=== PATIENT | male | born 1985 | race Caucasian/White ===

== ENCOUNTER 2018-01-19 08:33 | Inpatient (IN) ==
[2018-01-19] MEDS ORDERED: Sod Chloride 0.9% Inj 1,000 ML IV.SIG ONE (09:29)
[2018-01-19] MEDS ORDERED: Morphine Inj 4 MG/ML Vial IV.PUSH ONE ×3 (09:29→11:18)
[2018-01-19] MEDS ORDERED: Ketorolac Inj 30 MG/ML (IVP) Vial IV.PUSH ONE (09:29)
--- NOTE | 2018-01-19 09:31 | ED ---
HPI General Chief Complaint: Urogenital-Male Stated Complaint: possible kidney stone complaint Time Seen by Provider: 01/19/18 09:28 Source: patient and family Mode of arrival: ambulatory Limitations: no limitations History of Present Illness HPI narrative: Patient had acute onset of left flank pain since 7 AM nonradiating. Patient has a previous history of left ureteral reconstruction when he was 7 or 8 years old, and then in his 20s he developed left-sided kidney stone with hydronephrosis which ended up requiring lithotripsy and stent and essentially some sort of open kidney surgery according to patient. According to patient he developed hives to sulfa, but the Toradol he only developed nausea and vomiting , patient was advised that Toradol was not a allergy but adverse effect and that he will be provided with antiemetics any time that he is given that medication. Except for the above surgery no other surgical history Patient denies any other past medical history MD complaint: Reports flank pain Onset (ago): hour(s) (2.5) Pain Consistency: constant Location: Reports L flank Severity: severe Severity scale (1-10): 8 Quality: Reports sharp Radiation: Reports none Migration to: Reports no migration Exacerbating factors: nothing Associated symptoms: Reports denies other symptoms Related Data Home Medications Medication Instructions Recorded Confirmed No Known Home Medications 01/19/18 01/19/18 Allergies Allergy/AdvReac Type Severity Reaction Status Date / Time ketorolac Allergy Severe Nausea/Vomi Verified 01/19/18 09:23 ting Sulfa (Sulfonamide Allergy Severe hives Verified 01/19/18 09:23 Antibiotics) Review of Systems ROS: all other systems reviewed are negative [facility] Medical History Medical History Kidney stones (Acute) Surgical History Surgical History H/O lithotripsy (Acute) Family History Family History Other No pertinent family history Social History Social History Substance History: No History of Abuse Second Hand Smoke Exposure: No Smoking Status: Current every day smoker Tobacco Type: Cigarettes How Often Do You Have a Drink Containing Alcohol: 2 to 4 times a month Recent Travel in [facility] within the Last 8 Weeks: No Recent Out of Country Travel within the Last 8 Weeks: No Immunization History Tetanus Immunization: Unsure Exam Narrative Exam Narrative: GENERAL: young male in moderate Apparent distress due to pain. SKIN: Warm and dry. HEAD: Atraumatic. Normocephalic. EYES: Pupils equal and round. No scleral icterus. No injection or drainage. ENT: No nasal bleeding or discharge. Mucous membranes pink and moist. NECK: Trachea midline. No JVD. CARDIOVASCULAR: Regular rate and rhythm. no rubs or gallops RESPIRATORY: No accessory muscle use. Clear to auscultation. Breath sounds equal bilaterally. GASTROINTESTINAL: Abdomen soft, non-tender, nondistended. No rebound or guarding MUSCULOSKELETAL: Extremities without clubbing, cyanosis, or edema. No obvious deformities. No CVA tenderness NEUROLOGICAL: Awake and alert. No obvious cranial nerve deficits. Motor grossly within normal limits. Five out of 5 muscle strength in the arms and legs. Normal speech. PSYCHIATRIC: Appropriate mood and affect; insight and judgment normal. Course Initial Documented Vital Signs Temperature 97.6 F 01/19/18 08:35 Pulse Rate 78 01/19/18 08:35 Respiratory Rate 24 01/19/18 08:35 Blood Pressure 130/77 01/19/18 08:35 Pulse Oximetry 100 01/19/18 08:35 Last Documented Vital Signs Temperature 97.6 F 01/19/18 08:35 Pulse Rate 65 01/19/18 10:15 Respiratory Rate 16 01/19/18 11:00 Blood Pressure 137/76 01/19/18 10:15 Pulse Oximetry 100 01/19/18 10:15 Medical Decision Making [facility] Narrative Medical decision making narrative: Reactive leukocytosis 14,000 WBC, no evidence of any left shift, no anemia normal platelet count Urinalysis currently pending Electrodes are within normal limits, normal kidney liver function Elevated lipase [address] abdomen and pelvis read by radiologist as area of stenosis on left showing severe hydronephrosis no evidence of any renal stones. Case discussed fully with Dr. Durham from hospitalist group for admission Case was also fully discussed with the urologist Dr. Rush who will come and see the patient and evaluate for further recommendations Medical Screen Exam Complete: Yes Emergency Medical Condition: Yes Medical Records Medical records reviewed: Yes I reviewed the patient's medical records. Lab Data Result diagrams: 01/19/18 09:38 01/19/18 09:38 Lab Results 01/19/18 01/19/18 Range/Units 09:38 09:38 WBC 13.6 H (4.0-11.0) th/mm3 RBC 5.09 (4.50-5.90) mil/mm3 Hgb 15.6 (13.0-17.0) gm/dL Hct 46.0 (39.0-51.0) % MCV 90.3 (80.0-100.0) fL MCH 30.6 (27.0-34.0) pg MCHC 33.9 (32.0-36.0) % RDW 13.7 (11.6-17.2) % Plt Count 193 (150-450) th/mm3 MPV 9.2 (7.0-11.0) fL Neut % (Auto) 68.0 (16.0-70.0) % Lymph % (Auto) 20.5 (9.0-44.0) % [place] % (Auto) 8.6 H (0.0-8.0) % Eos % (Auto) 2.2 (0.0-4.0) % Baso % (Auto) 0.7 (0.0-2.0) % Neut # (Auto) 9.2 H (1.8-7.7) th/mm3 Lymph # (Auto) 2.8 (1.0-4.8) th/mm3 [place] # (Auto) 1.2 H (0.0-0.9) th/mm3 Eos # (Auto) 0.3 (0.0-0.4) th/mm3 Baso # (Auto) 0.1 (0.0-0.2) th/mm3 WBC Differential . Differential Comment Auto diff final Sodium 139 (136-145) meq/L Potassium 4.2 (3.5-5.1) meq/L Chloride 105 (98-107) meq/L Carbon Dioxide 25.6 (21.0-32.0) meq/L Anion Gap 8 (5-15) meq/L BUN 23 H (7-18) mg/dL Creatinine 1.15 (0.60-1.30) mg/dL Estimated GFR 73 L (>89) mL/min Random Glucose 95 (74-106) mg/dL Calcium 8.8 (8.5-10.1) mg/dL Total Bilirubin 1.0 (0.2-1.0) mg/dL AST 22 (15-37) U/L ALT 35 (12-78) U/L Alkaline Phosphatase 61 (45-117) U/L Total Protein 7.6 (6.4-8.2) g/dL Albumin 3.9 (3.4-5.0) g/dL Lipase 894 H (73-393) U/L Imaging Data Radiologist's impression: Abdomen/Pelvis CT 01/19/18 09:29 CONCLUSION: 1. There is abnormal dilation of the left renal collecting system to the level of the pelvic inlet without visible obstructing stone. Findings are concerning for an area of stenosis from prior ureteral surgery with resulting severe hydronephrosis. Urologic consultation is recommended. 2. No evidence of renal stones. Discharge Plan Discharge Disposition Patient Disposition: 30 Still Patient Discharge Condition Condition: Stable Discharge Details Diagnosis: Hydronephrosis, Pancreatitis Physicians Team ED Provider: Fredis Babcock Primary Care Provider: Primary Care Swapna Underwood Attending Provider: Marta Pablo Other Providers: Aleksander Rush Status ED Status: Admitted Observation Patient
[2018-01-19 09:57] LABS: Baso # (Auto) 0.1 th/mm3 (0.0-0.2); Baso % (Auto) 0.7 % (0.0-2.0); Eos # (Auto) 0.3 th/mm3 (0.0-0.4); Eos % (Auto) 2.2 % (0.0-4.0); Hemoglobin 15.6 gm/dL (13.0-17.0); Lymph # (Auto) 2.8 th/mm3 (1.0-4.8); Lymph % (Auto) 20.5 % (9.0-44.0); Mean Corpuscular HGB Conc 33.9 % (32.0-36.0); Mean Corpuscular Hemoglobin 30.6 pg (27.0-34.0); Mean Corpuscular Volume 90.3 fL (80.0-100.0); Mean Platelet Volume 9.2 fL (7.0-11.0); Mono # (Auto) 1.2 th/mm3 (0.0-0.9); Mono % (Auto) 8.6 % (0.0-8.0); Neut # (Auto) 9.2 th/mm3 (1.8-7.7); Platelet Count 193 th/mm3 (150-450); Red Blood Count 5.09 mil/mm3 (4.50-5.90); Red Cell Distribution Width 13.7 % (11.6-17.2); White Blood Count 13.6 th/mm3 (4.0-11.0)
[2018-01-19 10:12] LABS: Albumin 3.9 g/dL (3.4-5.0); Anion Gap 8 meq/L (5-15); Aspartate Aminotransferase 22 U/L (15-37); Blood Urea Nitrogen 23 mg/dL (7-18); Calcium 8.8 mg/dL (8.5-10.1); Carbon Dioxide 25.6 meq/L (21.0-32.0); Chloride 105 meq/L (98-107); Glomerular Filtration Rate 73 mL/min (>89); Glucose,Random 95 mg/dL (74-106); Lipase 894 U/L (73-393); Potassium 4.2 meq/L (3.5-5.1); Sodium 139 meq/L (136-145)
[2018-01-19 10:13] LABS: Alanine Aminotransferase 35 U/L (12-78)
[2018-01-19 10:16] LABS: Alkaline Phosphatase 61 U/L (45-117); Total Protein 7.6 g/dL (6.4-8.2)
--- NOTE | 2018-01-19 10:38 | CT ---
EXAM DATE: 01/19/2018 10:26 AM EST AGE/SEX: 32 years / Male INDICATIONS: Left flank pain CLINICAL DATA: This is the patient's initial encounter. Patient reports that signs and symptoms have been present for 1 day and indicates a pain score of 10/10. MEDICAL/SURGICAL HISTORY: Renal calculi. . Left ureteral surgery RADIATION DOSE: 14.66 CTDI (mGy) [place] [facility] [place] 03/29/2010. . TECHNIQUE: Multiple contiguous axial images were obtained through the abdomen. Images were obtained using multiple row detector helical technique. Using automated exposure control and adjustment of the mA and/or kV according to patient size, radiation dose was kept as low as reasonably achievable to o btain optimal diagnostic quality images. DICOM format image data is available electronically for rev iew and comparison. FINDINGS: Lower Lungs: The visualized lower lungs are clear. Liver: The liver has a homogeneous density without space-occupying lesion. There is no dilation of th e biliary tree. Spleen: Homogeneous density without enlargement. Pancreas: Unremarkable without mass or calcification. Kidneys: There is a stable appearance of severe left-sided hydronephrosis and abnormal dilation of t he proximal one third of the left ureter with rapid transition to a small caliber of the left ureter at the level of the pelvic inlet. No obstructing stone is visualized. The right kidney is normal in m orphology without evidence of stone, mass or abnormal dilation of the collecting system. Adrenal Glands: Unremarkable. Aorta: The aorta and proximal iliac vessels are grossly unremarkable without aneurysmal dilation. Bowel/Mesentery: The bowel loops are grossly unremarkable. The cecum and sigmoid colon have a normal configuration. Abdominal Wall: Intact. Retroperitoneum: No evidence of adenopathy in the retrocrural, para-aortic, or deep pelvic regions. Bladder: Contours are smooth. Reproductive Organs: No abnormal masses or calcifications seen. Inguinal: The inguinal region is unremarkable without evidence of adenopathy. Bony Structures: Unremarkable. CONCLUSION: 1. There is abnormal dilation of the left renal collecting system to the level of the pelvic inlet w ithout visible obstructing stone. Findings are concerning for an area of stenosis from prior ureteral surgery with resulting severe hydronephrosis. Urologic consultation is recommended. 2. No evidence of renal stones. Electronically signed by: Gale Ramirez MD 01/19/2018 10:36 AM EST
[2018-01-19] MEDS ORDERED: HYDROmorphone PF Inj 0.5 MG/0.5 ML Syringe IV.PUSH PRN (11:40)
--- NOTE | 2018-01-19 11:49 | P.HPIM ---
History of Present Illness Primary Care Physician: No Primary Care Physician Chief Complaint: left flank pain History of Present Illness: patient is a 32 y/o male with history of kidney stone- s/p left kidney surgery/ laser stone fragmentation/ left ureteral stent placement years ago, presented to ER with left flank pain.he says that the pain started this morning. pain was sharp and severe. pain had some radiation to the left upper abdomen. it was not associated with nausea, vomiting. he denies fever, gross hematuria or dysuria. pain subsided slightly with the morphine that he received earlier. Review of Systems All other systems reviewed negative except as stated in HPI PMFSH - History History Provided By: Patient - Medical History Medical History: Medical History (Last Reviewed 01/19/18 @ 11:45 by Marta Pablo MD) Kidney stones - Surgical History Surgical History: Surgical History (Last Reviewed 01/19/18 @ 11:45 by Marta Pablo MD) H/O lithotripsy - Family History Family History: Family History (Last Updated 01/19/18 @ 11:46 by Marta Pablo MD) Other No pertinent family history - Tobacco History Second Hand Smoke Exposure: No Tobacco Use In Past 30 Days: No Smoking Status: Current every day smoker Tobacco Type: Cigarettes - Alcohol History How Often Do You Have a Drink Containing Alcohol: 2 to 4 times a month - Substance Use History Substance History: No History of Abuse - Travel History Recent Travel in the [place] Within the Last 8 Weeks: No Recent Travel Out of the Country Within the Last 8 Weeks: No - Immunization History Tetanus Immunization: Unsure Medications and Allergies Active Medications: Active Medications Hydromorphone HCl (Dilaudid Pf Inj) 1 mg IV.PUSH Q4H PRN PRN Reason: pain Sodium Chloride (Ns Inj) 1,000 mls @ 100 mls/hr IV.CONT .Q10H СВЕТЛАНА Ondansetron HCl (Zofran Inj) 4 mg IV.PUSH Q8H PRN PRN Reason: nausea Sodium Chloride (Ns Flush) 2 ml IV.FLUSH PRN PRN PRN Reason: FLUSH AFTER USING IV ACCESS Allergies Allergy/AdvReac Type Severity Reaction Status Date / Time ketorolac Allergy Severe Nausea/Vomi Verified 01/19/18 09:23 ting Sulfa (Sulfonamide Allergy Severe hives Verified 01/19/18 09:23 Antibiotics) Home Medications Medication Instructions Recorded Confirmed Type No Known Home Medications 01/19/18 01/19/18 History Exam Vital signs: Vital Signs 01/19/18 08:35 01/19/18 10:00 01/19/18 10:15 Temperature 97.6 F Pulse Rate 78 65 Respiratory Rate 24 16 22 Blood Pressure 130/77 137/76 Pulse Oximetry 100 100 01/19/18 10:29 01/19/18 11:00 Temperature Pulse Rate Respiratory Rate 20 16 Blood Pressure Pulse Oximetry Intake & Output 01/18/18 01/19/18 01/19/18 18:59 06:59 18:59 Intake Total 650 / 650 Balance 650 / 650 Weight 92.986 kg Intake: IV 650 / 650 NS Inj 1,000 ML @ Wide Open IV. 650 / 650 SIG BOLUS ONE Rx#:[id number] - Constitutional no acute distress (but very uncomfortable with the pain.) - Routine HEENT Exam Eye: Present: PERRL - Routine Neck Exam Present: supple - Routine Respiratory Exam Present: CTA bilaterally - Routine Cardiovascular Exam Present: RRR - Routine Abdominal Exam Present: soft - Routine Extremities Exam Comments: no pedal edema. - Routine Neurological Exam Present: alert, oriented X3 Results - Labs CBC & Chem 7: 01/19/18 09:38 01/19/18 09:38 Labs: Short CBC 01/19/18 Range/Units 09:38 WBC 13.6 H (4.0-11.0) th/mm3 Hgb 15.6 (13.0-17.0) gm/dL Hct 46.0 (39.0-51.0) % Plt Count 193 (150-450) th/mm3 [facility] 01/19/18 09:38 Sodium 139 Potassium 4.2 Chloride 105 Carbon Dioxide 25.6 BUN 23 H Creatinine 1.15 Calcium 8.8 Liver Function 01/19/18 Range/Units 09:38 Total Bilirubin 1.0 (0.2-1.0) mg/dL AST 22 (15-37) U/L ALT 35 (12-78) U/L Alkaline Phosphatase 61 (45-117) U/L Albumin 3.9 (3.4-5.0) g/dL - Imaging Impressions Abdomen/Pelvis CT 01/19/18 09:29 CONCLUSION: 1. There is abnormal dilation of the left renal collecting system to the level of the pelvic inlet without visible obstructing stone. Findings are concerning for an area of stenosis from prior ureteral surgery with resulting severe hydronephrosis. Urologic consultation is recommended. 2. No evidence of renal stones. Caprini VTE Risk Assessment Caprini VTE Risk Assessment: No/Low Risk (score <= 1) Caprini Risk Assessment Model: Point Value = 1 Point Value = 2 Point Value = 3 Point Value = 5 Age 41-60 Minor surgery BMI > 25 kg/m2 Swollen legs Varicose veins or History of unexplained or recurrent spontaneous Oral contraceptives or hormone replacement Sepsis (< 1 month) Serious lung disease, including pneumonia (< 1 month) Abnormal pulmonary function Acute myocardial infarction Congestive heart failure (< 1 month) History of inflammatory bowel disease Medical patient at bed rest Age 61-74 Arthroscopic surgery Major open surgery (> 45 min) Laparoscopic surgery (> 45 min) Malignancy Confined to bed (> 72 hours) Immobilizing plaster cast Central venous access Age >= 75 History of VTE Family history of VTE Factor V Leiden Prothrombin [id number] Lupus anticoagulant Anticardiolipin antibodies Elevated serum homocysteine Heparin-induced thrombocytopenia Other congenital or acquired thrombophilia Stroke (< 1 month) Elective arthroplasty Hip, pelvis, or leg fracture Acute spinal cord injury (< 1 month) Prophylaxis Regimen: Total Risk Factor Score Risk Level Prophylaxis Regimen 0-1 Low Early ambulation 2 Moderate Order ONE of the following: *Sequential Compression Device (SCD) *Heparin 5000 units SQ BID 3-4 Higher Order ONE of the following medications: *Heparin 5000 units SQ TID *Enoxaparin/Lovenox 40 mg SQ daily (WT < 150 kg, CrCl > 30 mL/min) *Enoxaparin/Lovenox 30 mg SQ daily (WT < 150 kg, CrCl > 10-29 mL/min) *Enoxaparin/Lovenox 30 mg SQ BID (WT < 150 kg, CrCl > 30 mL/min) AND/OR *Sequential Compression Device (SCD) 5 or more Highest Order ONE of the following medications: *Heparin 5000 units SQ TID (Preferred with Epidurals) *Enoxaparin/Lovenox 40 mg SQ daily (WT < 150 kg, CrCl > 30 mL/min) *Enoxaparin/Lovenox 30 mg SQ daily (WT < 150 kg, CrCl > 10-29 mL/min) *Enoxaparin/Lovenox 30 mg SQ BID (WT < 150 kg, CrCl > 30 mL/min) AND *Sequential Compression Device (SCD) Assessment and Plan - Plan A/P - severe left-sided hydronephrosis but with no evidence of stone on CT keep NPO for now- consult Urology- will continue with supportive care with IV fluid, pain control and antiemetics as needed- UA pending. -elevated lipase- with no evidence of pancreatitis on CT continue supportive care and repeat the lipase level tomorrow. -leukocytosis- likely reactive UA pending- monitor temps and repeat CBC in am. Discussed Condition With: ER physician and the patient. Discharge Planning: home when medically stable - pending urology w/u.
[2018-01-19] MEDS: Sod Chloride 0.9% Inj 1,000 ML IV.CONT SCH (12:02)
[2018-01-19 13:17] LABS: Bilirubin,Urine Negative (Negative); Clarity,Urine Clear (Clear); Color,Urine Yellow (Yellw/Straw); Glucose,Urine (UA) Negative (Negative); Leukocyte Esterase,Urine Negative (Negative); Mucus,Urine Few /lpf (Occasional); Nitrite,Urine Negative (Negative); Specific Gravity,Urine 1.015 (1.002-1.035)
--- NOTE | 2018-01-19 15:02 | P.CONURO ---
History of Present Illness Service: urology Consult date: 01/19/18 Reason for Consult: Left hydronephrosis Primary Care Provider: No Primary Care Physician Chief Complaint: left flank pain History of Present Illness: 32yo male with urological history of left ureteral surgery as a child as well as nephrolithiasis history now seen on consultation for left flank pain. Patient reports he experienced severe left flank pain last night, 10/, located in left flank. Reports this was similar to the pain he previously experienced with kidney stone. This was in his 20s and treated with ESWL. His left ureteral surgery was as a child and sounds like a UPJ obstruction repair. No fevers, no N/V. Review of Systems All other systems reviewed negative except as stated in HPI PMFSH - History History Provided By: Patient - Medical History Medical History: Medical History (Last Reviewed 01/19/18 @ 11:45 by Marta Pablo MD) Kidney stones - Surgical History Surgical History: Surgical History (Last Reviewed 01/19/18 @ 11:45 by Marta Pablo MD) H/O lithotripsy - Family History Family History: Family History (Last Updated 01/19/18 @ 11:46 by Marta Pablo MD) Other No pertinent family history - Tobacco History Second Hand Smoke Exposure: No Tobacco Use In Past 30 Days: No Smoking Status: Current every day smoker Tobacco Type: Cigarettes - Alcohol History How Often Do You Have a Drink Containing Alcohol: 2 to 4 times a month - Substance Use History Substance History: No History of Abuse - Substance Use Type Marijuana Status: Active Route Used: Inhalation Frequency: 4-5 times weekly Reason for Use: Sleep - Travel History Recent Travel in the [place] Within the Last 8 Weeks: No Recent Travel Out of the Country Within the Last 8 Weeks: No - Immunization History Tetanus Immunization: Unsure Medications and Allergies Active Medications: Active Medications Hydromorphone HCl (Dilaudid Pf Inj) 1 mg IV.PUSH Q4H PRN PRN Reason: pain 1-10 Last Admin: 01/19/18 12:34 Dose: 1 mg Sodium Chloride (Ns Inj) 1,000 mls @ 100 mls/hr IV.CONT .Q10H СВЕТЛАНА Last Admin: 01/19/18 12:02 Dose: 100 mls/hr Ondansetron HCl (Zofran Inj) 4 mg IV.PUSH Q8H PRN PRN Reason: nausea Sodium Chloride (Ns Flush) 2 ml IV.FLUSH PRN PRN PRN Reason: FLUSH AFTER USING IV ACCESS Last Admin: 01/19/18 12:35 Dose: 2 ml Allergies Allergy/AdvReac Type Severity Reaction Status Date / Time ketorolac Allergy Severe Nausea/Vomi Verified 01/19/18 09:23 ting Sulfa (Sulfonamide Allergy Severe hives Verified 01/19/18 09:23 Antibiotics) Home Medications Medication Instructions Recorded Confirmed Type No Known Home Medications 01/19/18 01/19/18 History Physical Exam Vital Signs - 24 hr 01/19/18 08:35 01/19/18 10:00 01/19/18 10:15 Temperature 97.6 F Pulse Rate 78 65 Respiratory Rate 24 16 22 Blood Pressure 130/77 137/76 Pulse Oximetry 100 100 01/19/18 10:29 01/19/18 11:00 01/19/18 13:34 Temperature Pulse Rate Respiratory Rate 20 16 16 Blood Pressure Pulse Oximetry 01/19/18 14:36 Temperature Pulse Rate 75 Respiratory Rate 16 Blood Pressure 124/77 Pulse Oximetry 98 Physical Exam: GENERAL: This is a well-nourished, well-developed patient, in no apparent distress. SKIN: No rashes, ecchymoses or lesions. Cool and dry. HEAD: Atraumatic. Normocephalic. EYES: Extraocular motions intact. No scleral icterus. No injection or drainage. ENT: Nose without bleeding, purulent drainage NECK: Trachea midline. No JVD or lymphadenopathy. . CARDIOVASCULAR: Normal pulse RESPIRATORY: nonlabored GASTROINTESTINAL: Abdomen soft, non-tender, nondistended. Left flank scar noted MUSCULOSKELETAL: Extremities without clubbing, cyanosis, or edema. NEUROLOGICAL: Awake and alert. Motor and sensory grossly within normal limits. Normal speech. Lab results reviewed: Yes Laboratory Results - last 24 hr 01/19/18 01/19/18 01/19/18 09:38 09:38 11:50 WBC 13.6 H RBC 5.09 Hgb 15.6 Hct 46.0 MCV 90.3 MCH 30.6 MCHC 33.9 RDW 13.7 Plt Count 193 MPV 9.2 Neut % (Auto) 68.0 Lymph % (Auto) 20.5 [place] % (Auto) 8.6 H Eos % (Auto) 2.2 Baso % (Auto) 0.7 Neut # (Auto) 9.2 H Lymph # (Auto) 2.8 [place] # (Auto) 1.2 H Eos # (Auto) 0.3 Baso # (Auto) 0.1 WBC Differential . Differential Comment Auto diff final Sodium 139 Potassium 4.2 Chloride 105 Carbon Dioxide 25.6 Anion Gap 8 BUN 23 H Creatinine 1.15 Estimated GFR 73 L Random Glucose 95 Calcium 8.8 Total Bilirubin 1.0 AST 22 ALT 35 Alkaline Phosphatase 61 Total Protein 7.6 Albumin 3.9 Lipase 894 H Urine Color Yellow Urine Clarity Clear Urine pH 7.0 Ur Specific [place] 1.015 Urine Protein Negative Urine Glucose (UA) Negative Urine Ketones Negative Urine Occult Blood Negative Urine Nitrate Negative Urine Bilirubin Negative Urine Urobilinogen Less than 2 Ur Leukocyte Esterase Negative Urine RBC 1 Urine WBC 2 Urine Mucus Few H Micro UA Comment Culture not ind Ur Microscopic Review Not Reportable Urine Culture Comments Culture not ind Result Diagrams: 01/19/18 09:38 01/19/18 09:38 Personally reviewed images: Yes Imaging: ITS Impressions Abdomen/Pelvis CT 01/19/18 09:29 CONCLUSION: 1. There is abnormal dilation of the left renal collecting system to the level of the pelvic inlet without visible obstructing stone. Findings are concerning for an area of stenosis from prior ureteral surgery with resulting severe hydronephrosis. Urologic consultation is recommended. 2. No evidence of renal stones. Assessment and Plan - Assessment (1) Hydronephrosis Code(s): N13.30 - Unspecified hydronephrosis Status: Acute - Plan -Patient with pain however no obvious obstruction -Will obtain lasix renal scan to evaluate possible obstruction -Will follow
[2018-01-19] MEDS: HYDROmorphone PF Inj 1 MG/ML Ampul IV.PUSH PRN ×2 (16:15→20:02)
[2018-01-19] MEDS: Ketorolac Inj 30 MG/ML (IVP) Vial IV.PUSH PRN (19:47)
[2018-01-20] MEDS: HYDROmorphone PF Inj 1 MG/ML Ampul IV.PUSH PRN ×5 (00:03→21:26)
[2018-01-20] MEDS: Sod Chloride 0.9% Inj 1,000 ML IV.CONT SCH ×3 (00:05→10:16)
[2018-01-20] MEDS: Ketorolac Inj 30 MG/ML (IVP) Vial IV.PUSH PRN (02:16)
--- NOTE | 2018-01-20 06:11 | P.PN ---
Subjective Interval history: f/u hydronephrosis. Complaining of left flank pain and heartburn. Denies epigastric discomfort. Asking for food Physical Exam Vital signs: Vital Signs 01/19/18 08:35 01/19/18 10:00 01/19/18 10:15 Temperature 97.6 F Pulse Rate 78 65 Respiratory Rate 24 16 22 Blood Pressure 130/77 137/76 Pulse Oximetry 100 100 01/19/18 10:29 01/19/18 11:00 01/19/18 13:34 Temperature Pulse Rate Respiratory Rate 20 16 16 Blood Pressure Pulse Oximetry 01/19/18 14:36 01/19/18 16:00 01/19/18 20:00 Temperature 98.6 F 98.1 F Pulse Rate 75 56 L 62 Respiratory Rate 16 16 17 Blood Pressure 124/77 117/65 119/74 Pulse Oximetry 98 95 95 01/19/18 21:42 01/20/18 00:00 01/20/18 02:39 Temperature Pulse Rate 68 Respiratory Rate 18 18 18 Blood Pressure 120/67 Pulse Oximetry 99 01/20/18 03:53 Temperature 98.2 F Pulse Rate 50 L Respiratory Rate 18 Blood Pressure 115/60 Pulse Oximetry 95 Intake & Output 01/19/18 01/19/18 01/20/18 06:59 18:59 06:59 Intake Total 1300 / 1300 1000 / 1000 Output Total 650 / 650 300 / 300 Balance 650 / 650 700 / 700 Weight 95 kg Intake: IV 1300 / 1300 1000 / 1000 NS Inj 1,000 ML @ 100 mls/hr IV 1000 / 1000 .CONT .Q10H [facility] Rx#:[id number] NS Inj 1,000 ML @ Wide Open IV. 650 / 650 SIG BOLUS ONE Rx#:[id number] Output: Urine 650 / 650 300 / 300 Other: # Voids 1 Date of Last Bowel Movement 01/19/18 Weight On Admission 95 kg Narrative: GENERAL: Well-developed and well-nourished SKIN: Warm and dry. CARDIOVASCULAR: Regular rate and rhythm. RESPIRATORY: No accessory muscle use. Clear to auscultation. Breath sounds equal bilaterally. GASTROINTESTINAL: Abdomen soft, non-tender, nondistended. Left CVA tenderness MUSCULOSKELETAL: Extremities without clubbing, cyanosis, or edema. No obvious deformities. NEUROLOGICAL: Awake and alert. No obvious cranial nerve deficits. Motor grossly within normal limits. Five out of 5 muscle strength in the arms and legs. Normal speech. PSYCHIATRIC: Appropriate mood and affect; insight and judgment normal. Results - Labs CBC & Chem 7: 01/20/18 07:20 01/20/18 07:20 Laboratory Results - last 24 hr 01/19/18 01/19/18 01/19/18 09:38 09:38 11:50 WBC 13.6 H RBC 5.09 Hgb 15.6 Hct 46.0 MCV 90.3 MCH 30.6 MCHC 33.9 RDW 13.7 Plt Count 193 MPV 9.2 Neut % (Auto) 68.0 Lymph % (Auto) 20.5 [place] % (Auto) 8.6 H Eos % (Auto) 2.2 Baso % (Auto) 0.7 Neut # (Auto) 9.2 H Lymph # (Auto) 2.8 [place] # (Auto) 1.2 H Eos # (Auto) 0.3 Baso # (Auto) 0.1 WBC Differential . Differential Comment Auto diff final Sodium 139 Potassium 4.2 Chloride 105 Carbon Dioxide 25.6 Anion Gap 8 BUN 23 H Creatinine 1.15 Estimated GFR 73 L Random Glucose 95 Calcium 8.8 Total Bilirubin 1.0 AST 22 ALT 35 Alkaline Phosphatase 61 Total Protein 7.6 Albumin 3.9 Lipase 894 H Urine Color Yellow Urine Clarity Clear Urine pH 7.0 Ur Specific [place] 1.015 Urine Protein Negative Urine Glucose (UA) Negative Urine Ketones Negative Urine Occult Blood Negative Urine Nitrate Negative Urine Bilirubin Negative Urine Urobilinogen Less than 2 Ur Leukocyte Esterase Negative Urine RBC 1 Urine WBC 2 Urine Mucus Few H Micro UA Comment Culture not ind Ur Microscopic Review Not Reportable Urine Culture Comments Culture not ind - Imaging Impressions Abdomen/Pelvis CT 01/19/18 09:29 CONCLUSION: 1. There is abnormal dilation of the left renal collecting system to the level of the pelvic inlet without visible obstructing stone. Findings are concerning for an area of stenosis from prior ureteral surgery with resulting severe hydronephrosis. Urologic consultation is recommended. 2. No evidence of renal stones. Assessment and Plan - Plan Severe left-sided hydronephrosis but with no evidence of stone on CT -will continue with supportive care with IV fluid, pain control and antiemetics as needed- UA unremarkable. Lasix renal scan per Elevated lipase- with no evidence of pancreatitis on CT continue supportive care and repeat lipase within normal limits Leukocytosis- likely reactive. Resolved DVT prophylaxis, pt ambulatory
[2018-01-20 08:31] LABS: Baso # (Auto) 0.1 th/mm3 (0.0-0.2); Baso % (Auto) 0.7 % (0.0-2.0); Eos # (Auto) 0.3 th/mm3 (0.0-0.4); Eos % (Auto) 3.1 % (0.0-4.0); Hemoglobin 15.2 gm/dL (13.0-17.0); Lymph # (Auto) 2.2 th/mm3 (1.0-4.8); Lymph % (Auto) 26.1 % (9.0-44.0); Mean Corpuscular HGB Conc 33.7 % (32.0-36.0); Mean Corpuscular Hemoglobin 30.3 pg (27.0-34.0); Mean Corpuscular Volume 90.1 fL (80.0-100.0); Mean Platelet Volume 9.6 fL (7.0-11.0); Mono # (Auto) 0.8 th/mm3 (0.0-0.9); Mono % (Auto) 9.6 % (0.0-8.0); Neut # (Auto) 5.1 th/mm3 (1.8-7.7); Neut % (Auto) 60.5 % (16.0-70.0); Platelet Count 173 th/mm3 (150-450); Red Cell Distribution Width 13.4 % (11.6-17.2); White Blood Count 8.4 th/mm3 (4.0-11.0)
[2018-01-20 08:58] LABS: Anion Gap 7 meq/L (5-15); Blood Urea Nitrogen 15 mg/dL (7-18); Calcium 8.4 mg/dL (8.5-10.1); Carbon Dioxide 26.8 meq/L (21.0-32.0); Chloride 106 meq/L (98-107); Glomerular Filtration Rate Greater Than 89 mL/min (>89); Glucose,Random 82 mg/dL (74-106); Lipase 113 U/L (73-393); Potassium 3.9 meq/L (3.5-5.1); Sodium 140 meq/L (136-145)
[2018-01-20] MEDS ORDERED: Naloxone Inj 0.4 MG/ML Vial IV.PUSH PRN (09:21)
[2018-01-20] MEDS ORDERED: Acetaminophen 325 MG Tablet PO PRN (09:21)
[2018-01-20] MEDS ORDERED: Bisacodyl 10 MG Supp RECTAL PRN (09:22)
[2018-01-20] MEDS ORDERED: Aluminum/Magnesium/Simethacone Susp 30 ML UDC PO PRN (09:22)
[2018-01-20] MEDS: Famotidine 20 MG Tablet PO SCH ×2 (10:35→20:17)
--- NOTE | 2018-01-20 16:13 | NM ---
EXAM DATE: 01/20/2018 12:47 PM EST AGE/SEX: 32 years / Male INDICATIONS: Left flank pain. CLINICAL DATA: This is the patient's initial encounter. Patient reports that signs and symptoms have been present for 1 day and indicates a pain score of 10/10. MEDICAL/SURGICAL HISTORY: . Nephrolithiasis. . Left ureteral surgery as a child. COMPARISON: [facility] [place], CT ABDOMEN & PELVIS W/O CONTRAST, 01/19/2018. . TECHNIQUE: Following the intravenous administration of radiotracer, dynamic imaging of flow and excre tory phases was performed. DOSE: 20.1 mCi Tc99m DTPA IV MEDICATION: 40 mg Lasix IV at 13 minutes. minutes. FINDINGS: Flow: There is symmetric arrival of bolus to both kidneys. There is homogeneous perfusion to both ki dneys. Differential Function: 55 % on Right. 45 % on Left. Excretion: There is normal renal cortical transit time and normal rate of washout from the parenchym a of the right kidney and collecting system. On the left side, there is normal renal cortical transit time and symmetric arrival time of activity in the collecting system. Post Lasix, there is prompt em ptying of the activity in the calyces with movement of the activity into a prominent extrarenal pelvi s. There is 60% reduction in activity post Lasix on the left side, indicating the absence of obstruct ion.. CONCLUSION: 1. Symmetric function. No evidence of obstruction on either side. 2. Prominent left-sided extrarenal pelvis with good response to Lasix. Electronically signed by: Giacomo Jackson MD 01/20/2018 4:12 PM EST
[2018-01-20] MEDS: Senna/Docusate Sodium 8.6/50 MG Tablet PO SCH (20:17)
[2018-01-21] MEDS: HYDROmorphone PF Inj 1 MG/ML Ampul IV.PUSH PRN ×5 (01:16→20:45)
[2018-01-21] MEDS ORDERED: Ibuprofen 400 MG Tablet PO ONE (02:04)
[2018-01-21] MEDS ORDERED: Sodium Chloride 0.9% 2 ML Flush PRN IV.FLUSH (02:10)
[2018-01-21] MEDS: Ketorolac Inj 30 MG/ML (IVP) Vial IV.PUSH PRN ×2 (02:20→09:37)
[2018-01-21] MEDS: Sodium Chloride 0.9% 2 ML Flush BID IV.FLUSH SCH ×2 (09:37→20:47)
[2018-01-21] MEDS: Senna/Docusate Sodium 8.6/50 MG Tablet PO SCH ×2 (09:37→20:45)
[2018-01-21] MEDS: Famotidine 20 MG Tablet PO SCH ×2 (09:37→20:45)
[2018-01-21] MEDS: Lidocaine 5% Patch T-DERMAL SCH (09:49)
--- NOTE | 2018-01-21 11:42 | P.PN ---
Subjective Interval history: Follow up on patient with left sided hydronephrosis. Lasix renal scan completed , no e/o obstruction. Patient continues to have significant left sided low back /flank pain. Patient reports the pain is constant and varies from a 5 to a 10. He denies any improvement since admission. He denies any aggravating or alleviating symptoms. He reports occasional chills. He says he has nausea but no vomiting since yesterday. He denies any abdominal pain. He did not eat any dinner and is not interested in eating breakfast. He says he is urinating well. He denies any hx of back injury or chronic back problems. He denies any radicular symptoms. He denies any left leg weakness. Physical Exam Vital signs: Vital Signs 01/20/18 16:00 01/20/18 20:00 01/20/18 23:07 Temperature 98.6 F 99.1 F 98.4 F Pulse Rate 60 74 60 Respiratory Rate 18 Blood Pressure 109/63 129/86 109/62 Pulse Oximetry 98 96 94 L 01/21/18 03:23 01/21/18 06:25 01/21/18 08:25 Temperature 97.8 F 97.8 F 98.2 F Pulse Rate 50 L 75 58 L Respiratory Rate 18 19 Blood Pressure 110/72 126/94 H 112/64 Pulse Oximetry 96 100 Intake & Output 01/20/18 01/21/18 01/21/18 18:59 06:59 18:59 Intake Total 1000 / 1000 Output Total 700 / 700 1600 / 1600 Balance 300 / 300 -1600 / -1600 Weight 95 kg Intake: IV 1000 / 1000 NS Inj 1,000 ML @ 100 mls/hr IV 1000 / 1000 .CONT .Q10H [facility] Rx#:[id number] Output: Urine 700 / 700 1600 / 1600 Other: Date of Last Bowel Movement 01/20/18 01/20/18 Narrative: GENERAL: Well-developed and well-nourished male patient, INAD. Awake and alert. Appears uncomfortable lying on his right side. SKIN: Warm and dry. No generalized rash. CARDIOVASCULAR: Regular rate and rhythm. RESPIRATORY: No accessory muscle use. Clear to auscultation. Breath sounds equal bilaterally. GASTROINTESTINAL: Abdomen soft, nondistended. +mild discomfort to palpation left lower quadrant. +Left CVA tenderness. +well healed left sided surgical scar from previous ureteral sx per patient. MUSCULOSKELETAL: Extremities without clubbing, cyanosis, or edema. No obvious deformities. NEUROLOGICAL: Awake and alert. No obvious cranial nerve deficits. Motor grossly within normal limits. Able to move all extremities spontaneously. Nonfocal. Normal speech. PSYCHIATRIC: Appropriate mood and affect; insight and judgment normal. Results - Labs CBC & Chem 7: 01/20/18 07:20 01/20/18 07:20 - Imaging Impressions Renal Scan w/Medication NM 01/20/18 00:00 CONCLUSION: 1. Symmetric function. No evidence of obstruction on either side. 2. Prominent left-sided extrarenal pelvis with good response to Lasix. Assessment and Plan - Plan 32yo male with PMHX of kidney stones admitted with left sided hydronephrosis: Severe left-sided hydronephrosis Hx of left-sided ureteral surgery CT abd/pelvis shows abnormal dilation of the left renal collecting system, no e/ o stone, concern for area of stenosis from prior ureteral sx with resulting hydronephrosis. UA unremarkable creatinine WNL s/p Lasix renal scan showing symmetric function, no e/o obstruction, prominent left sided extrarenal pelvis - following, appreciate assistance -continue with supportive care with IV fluid, pain control and antiemetics as needed -?musculoskeletal pain, patient denies any hx of recent injury or back problems , trial of kthermia and lidoderm patch -IV Elevated lipase no evidence of pancreatitis on CT Repeat lipase WNL -continue supportive care Leukocytosis, suspect reactive resolved -monitor white count as indicated DVT prophylaxis, pt ambulatory Discussed Condition With: patient, nursing staff Discharge Planning: Not ready for discharge. Discharge pending clinical improvement and urology clearance.
[2018-01-21] MEDS: Sod Chloride 0.9% Inj 1,000 ML IV.CONT SCH (14:53)
--- NOTE | 2018-01-21 16:38 | P.PNURO ---
Subjective Patient symptoms today: Pt was seen at the bedside. no fever, no N/V. labs are stable. He still c/o left back/flank pain. Renal scan reviewed and discussed with pt. No obstruction seen Normal split function. He states that still has pain. Using pain patch but its not helpful Objective Vital Signs: Vital Signs 01/20/18 20:00 01/20/18 23:07 01/21/18 03:23 Temperature 99.1 F 98.4 F 97.8 F Pulse Rate 74 60 50 L Respiratory Rate Blood Pressure 129/86 109/62 110/72 Pulse Oximetry 96 94 L 96 01/21/18 06:25 01/21/18 08:25 01/21/18 11:50 Temperature 97.8 F 98.2 F 98.1 F Pulse Rate 75 58 L 69 Respiratory Rate Blood Pressure 126/94 H 112/64 139/77 Pulse Oximetry 100 94 L Intake & Output 01/20/18 01/21/18 01/21/18 18:59 06:59 18:59 Intake Total 1000 / 1000 Output Total 700 / 700 1600 / 1600 Balance 300 / 300 -1600 / -1600 Weight 95 kg Intake: IV 1000 / 1000 NS Inj 1,000 ML @ 100 mls/hr IV 1000 / 1000 .CONT .Q10H [facility] Rx#:[id number] Output: Urine 700 / 700 1600 / 1600 Other: Date of Last Bowel Movement 01/20/18 01/20/18 Result Diagrams: 01/20/18 07:20 01/20/18 07:20 Other Results: NAD RRR Clear lungs Abd soft NT Medications and IVs: Active Medications Generic Name Dose Route Start Last Admin Trade Name Freq PRN Reason Stop Dose Admin Acetaminophen 650 mg 01/20/18 09:21 Tylenol PO Q6HR PRN PAIN SCALE 1 TO 2 Hydrocodone Bitart/Acetaminophen 1 tab 01/20/18 09:21 01/21/18 12:42 [place] 10/325 PO 1 tab Q4H PRN Administration PAIN SCALE 6 TO 10 Hydrocodone Bitart/Acetaminophen 1 tab 01/20/18 09:21 [place] 5/325 PO Q4H PRN PAIN SCALE 3 TO 5 Al Hydrox/Mg Hydrox/Simethicone 30 ml 01/20/18 09:22 Mag-Al Plus Susp Liq PO Q6H PRN DYSPEPSIA OR HEARTBURN Al Hydroxide/Mg Hydroxide 30 ml 01/20/18 09:22 Milk Of Magnesia Liq PO Q12H PRN Mild Constipation Bisacodyl 10 mg 01/20/18 09:22 Dulcolax Supp RECTAL DAILY PRN SEVERE CONSITIPATION Calcium Carbonate 500 mg 01/20/18 09:22 Tums Chew CHEW Q6H PRN DYSPEPSIA OR HEARTBURN Famotidine 20 mg 01/20/18 09:30 01/21/18 09:37 Pepcid PO 20 mg BID СВЕТЛАНА Administration Hydromorphone HCl 1 mg 01/19/18 16:15 01/21/18 15:56 Dilaudid Pf Inj IV.PUSH 1 mg Q4H PRN Administration INTRACTABLE PAIN Sodium Chloride 1,000 mls @ 84 mls/hr 01/21/18 14:15 01/21/18 14:53 Ns Inj IV.CONT 84 mls/hr .[id number] СВЕТЛАНА Administration Ketorolac Tromethamine 15 mg 01/19/18 19:17 01/21/18 09:37 Toradol Inj IV.PUSH 01/24/18 19:16 15 mg Q6H PRN Administration BREAKTHROUGH PAIN Lactulose 30 ml 01/20/18 09:22 Lactulose Liq PO DAILY PRN SEVERE CONSITIPATION Lidocaine HCl 1 patch 01/21/18 09:45 01/21/18 09:49 Lidoderm 5% Patch.12 Hr T-DERMAL 1 patch DAILY СВЕТЛАНА Administration Naloxone HCl 0.4 mg 01/20/18 09:21 Narcan Inj IV.PUSH UNSCH PRN SEE LABEL COMMENTS Ondansetron HCl 4 mg 01/19/18 11:40 01/21/18 06:40 Zofran Inj IV.PUSH 4 mg Q8H PRN Administration nausea Patch Removal 1 each 01/21/18 21:00 Remove Old Patch T-DERMAL HS СВЕТЛАНА Senna/Docusate Sodium 1 tab 01/20/18 21:00 01/21/18 09:37 Vibha-Colace PO 1 tab BID СВЕТЛАНА Administration Sennosides 17.2 mg 01/20/18 09:22 Senokot PO Q12H PRN Moderate Constipation Sodium Chloride 2 ml 01/21/18 09:00 01/21/18 09:37 Ns Flush IV.FLUSH 2 ml BID СВЕТЛАНА Administration Sodium Chloride 2 ml 01/21/18 02:10 01/21/18 06:41 Ns Flush IV.FLUSH 2 ml PRN PRN Administration FLUSH AFTER USING IV ACCESS Assessment and Plan - Plan - Continue care as per primary team - No additional intervention needed - Renal scan is normal - R/o other possible non causes of pain - If continue to have left flank pain needs to see his as outpt for possible ureteroscopy/[facility] remained available as needed Discussed Condition With: Dr Rush attending who agrees with this plan
[2018-01-22] MEDS: HYDROmorphone PF Inj 1 MG/ML Ampul IV.PUSH PRN ×5 (02:13→22:34)
[2018-01-22] MEDS: Sod Chloride 0.9% Inj 1,000 ML IV.CONT SCH ×2 (04:14→13:23)
[2018-01-22] MEDS: Famotidine 20 MG Tablet PO SCH ×2 (09:19→20:23)
[2018-01-22] MEDS: Senna/Docusate Sodium 8.6/50 MG Tablet PO SCH ×2 (09:19→20:23)
[2018-01-22] MEDS: Lidocaine 5% Patch T-DERMAL SCH (09:20)
[2018-01-22] MEDS: Sodium Chloride 0.9% 2 ML Flush BID IV.FLUSH SCH ×2 (09:24→20:23)
[2018-01-22] MEDS ORDERED: Senna/Docusate Sodium 8.6/50 MG Tablet PO ONE (10:32)
[2018-01-22] MEDS: Ketorolac Inj 30 MG/ML (IVP) Vial IV.PUSH PRN ×2 (11:54→17:20)
[2018-01-22] MEDS: Polyethylene Glycol 3350 17 GM Packet PO SCH (11:57)
[2018-01-22] MEDS ORDERED: Bisacodyl 10 MG Supp RECTAL ONE (13:00)
[2018-01-22 13:15] LABS: Baso # (Auto) 0.1 th/mm3 (0.0-0.2); Baso % (Auto) 0.6 % (0.0-2.0); Eos # (Auto) 0.3 th/mm3 (0.0-0.4); Eos % (Auto) 3.8 % (0.0-4.0); Hematocrit 44.6 % (39.0-51.0); Hemoglobin 15.5 gm/dL (13.0-17.0); Lymph # (Auto) 2.4 th/mm3 (1.0-4.8); Mean Corpuscular HGB Conc 34.9 % (32.0-36.0); Mean Corpuscular Hemoglobin 31.1 pg (27.0-34.0); Mean Corpuscular Volume 89.1 fL (80.0-100.0); Mono # (Auto) 0.8 th/mm3 (0.0-0.9); Mono % (Auto) 8.9 % (0.0-8.0); Neut # (Auto) 5.6 th/mm3 (1.8-7.7); Neut % (Auto) 60.7 % (16.0-70.0); Platelet Count 188 th/mm3 (150-450); Red Cell Distribution Width 13.5 % (11.6-17.2); White Blood Count 9.2 th/mm3 (4.0-11.0)
[2018-01-22 13:27] LABS: Alanine Aminotransferase 32 U/L (12-78); Albumin 3.6 g/dL (3.4-5.0); Anion Gap 4 meq/L (5-15); Aspartate Aminotransferase 15 U/L (15-37); Blood Urea Nitrogen 14 mg/dL (7-18); Calcium 8.7 mg/dL (8.5-10.1); Chloride 107 meq/L (98-107); Glomerular Filtration Rate 85 mL/min (>89); Glucose,Random 86 mg/dL (74-106); Lipase 71 U/L (73-393); Potassium 3.9 meq/L (3.5-5.1); Sodium 141 meq/L (136-145)
[2018-01-22 13:30] LABS: Alkaline Phosphatase 56 U/L (45-117); Total Protein 6.9 g/dL (6.4-8.2)
--- NOTE | 2018-01-22 14:25 | P.PN ---
Subjective Interval history: Follow-up on patient with left-sided hydronephrosis. Patient seen and examined. Patient continues to have severe 10 out of 10 left lower quadrant pain with radiation to the back. Patient describes it as a constant squeezing type pain with intermittent sharp exacerbations. He denies any worsening with movement or other activity. Dates he is urinating well. He is not eating much due to ongoing nausea. He says he is not improved at all since his admission. Physical Exam Vital signs: Vital Signs 01/21/18 16:00 01/21/18 20:00 01/22/18 00:00 Temperature 98.6 F 99.1 F 98.1 F Pulse Rate 59 L 59 L 54 L Respiratory Rate 19 17 16 Blood Pressure 123/85 137/95 H 108/56 L Pulse Oximetry 96 97 97 01/22/18 04:00 01/22/18 08:00 Temperature 97.3 F L 98 F Pulse Rate 56 L 58 L Respiratory Rate 16 18 Blood Pressure 102/66 118/62 Pulse Oximetry 97 99 Intake & Output 01/21/18 01/22/18 01/22/18 18:59 06:59 18:59 Intake Total 1200 / 1200 1000 / 1000 1000 / 1000 Balance 1200 / 1200 1000 / 1000 1000 / 1000 Intake: IV 1000 / 1000 1000 / 1000 NS Inj 1,000 ML @ 84 mls/hr IV. 1000 / 1000 1000 / 1000 CONT .[id number] [facility] Rx#:[id number] Oral 1200 / 1200 Other: # Voids 6 Date of Last Bowel Movement 01/20/18 01/20/18 01/20/18 # Bowel Movements 1 Narrative: GENERAL: Well-developed and well-nourished male patient, INAD. Awake and alert. Appears uncomfortable lying in bed. His is at the bedside. SKIN: Warm and dry. No generalized rash. CARDIOVASCULAR: Regular rate and rhythm. RESPIRATORY: No accessory muscle use. Clear to auscultation. Breath sounds equal bilaterally. GASTROINTESTINAL: Abdomen soft, nondistended. +tenderness to palpation left lower quadrant. +Left CVA tenderness. +well healed left sided surgical scar from previous ureteral sx per patient. MUSCULOSKELETAL: Extremities without clubbing, cyanosis, or edema. No obvious deformities. NEUROLOGICAL: Awake and alert. No obvious cranial nerve deficits. Motor grossly within normal limits. Able to move all extremities spontaneously. Nonfocal. Normal speech. PSYCHIATRIC: Appropriate mood and affect; insight and judgment normal. Results - Labs CBC & Chem 7: 01/22/18 12:59 01/22/18 12:59 Laboratory Results - last 24 hr 01/22/18 01/22/18 12:59 12:59 WBC 9.2 RBC 5.00 Hgb 15.5 Hct 44.6 MCV 89.1 MCH 31.1 MCHC 34.9 RDW 13.5 Plt Count 188 MPV 9.0 Neut % (Auto) 60.7 Lymph % (Auto) 26.0 [place] % (Auto) 8.9 H Eos % (Auto) 3.8 Baso % (Auto) 0.6 Neut # (Auto) 5.6 Lymph # (Auto) 2.4 [place] # (Auto) 0.8 Eos # (Auto) 0.3 Baso # (Auto) 0.1 WBC Differential . Differential Comment Auto diff final Sodium 141 Potassium 3.9 Chloride 107 Carbon Dioxide 30.0 Anion Gap 4 L BUN 14 Creatinine 1.01 Estimated GFR 85 L Random Glucose 86 Calcium 8.7 Total Bilirubin 1.2 H AST 15 ALT 32 Alkaline Phosphatase 56 Total Protein 6.9 D Albumin 3.6 Lipase 71 L Assessment and Plan - Plan 32yo male with PMHX of kidney stones admitted with left sided hydronephrosis: Severe left-sided hydronephrosis Hx of left-sided ureteral surgery CT abd/pelvis shows abnormal dilation of the left renal collecting system, no e/ o stone, concern for area of stenosis from prior ureteral sx with resulting hydronephrosis. UA unremarkable creatinine WNL s/p Lasix renal scan showing symmetric function, no e/o obstruction, prominent left sided extrarenal pelvis - following, appreciate assistance. No urologic intervention indicated at this time. Patient may follow-up as outpatient. -continue with supportive care with IV fluid, pain control and antiemetics as needed -?musculoskeletal pain, patient denies any hx of recent injury or back problems , trial of kthermia and lidoderm patch. Will obtain MRI thoracic and lumbar spine for further evaluation Constipation, may be contributing to current symptoms CT reviewed showing significant amount of stool in colon -escalate bowel regimen -monitor for BM and possible improvement in sxs Elevated lipase no evidence of pancreatitis on CT Repeat lipase WNL -continue supportive care Leukocytosis, suspect reactive resolved -monitor white count as indicated DVT prophylaxis, pt is ambulatory Discussed Condition With: patient, nursing staff, Dr. Tyson Discharge Planning: Not ready for discharge. Discharge pending clinical improvement and urology clearance.
--- NOTE | 2018-01-22 16:34 | P.PNURO ---
Subjective Patient symptoms today: Patient seen and examined today. Pain persistent. Renal scan does not identify any obstruction on either kidney. Prominent left renal pelvis, likely from prior childhood surgery, however drains well. No urological cause for pain noted at this time. Objective Vital Signs: Vital Signs 01/21/18 20:00 01/22/18 00:00 01/22/18 04:00 Temperature 99.1 F 98.1 F 97.3 F L Pulse Rate 59 L 54 L 56 L Respiratory Rate 17 16 16 Blood Pressure 137/95 H 108/56 L 102/66 Pulse Oximetry 97 97 97 01/22/18 08:00 Temperature 98 F Pulse Rate 58 L Respiratory Rate 18 Blood Pressure 118/62 Pulse Oximetry 99 Intake & Output 01/21/18 01/22/18 01/22/18 18:59 06:59 18:59 Intake Total 1200 / 1200 1000 / 1000 1000 / 1000 Balance 1200 / 1200 1000 / 1000 1000 / 1000 Intake: IV 1000 / 1000 1000 / 1000 NS Inj 1,000 ML @ 84 mls/hr IV. 1000 / 1000 1000 / 1000 CONT .[id number] [facility] Rx#:[id number] Oral 1200 / 1200 Other: # Voids 6 Date of Last Bowel Movement 01/20/18 01/20/18 01/20/18 # Bowel Movements 1 Result Diagrams: 01/22/18 12:59 01/22/18 12:59 Medications and IVs: Active Medications Generic Name Dose Route Start Last Admin Trade Name Freq PRN Reason Stop Dose Admin Acetaminophen 650 mg 01/20/18 09:21 Tylenol PO Q6HR PRN PAIN SCALE 1 TO 2 Hydrocodone Bitart/Acetaminophen 1 tab 01/20/18 09:21 01/22/18 13:21 [place] 10/325 PO 1 tab Q4H PRN Administration PAIN SCALE 6 TO 10 Hydrocodone Bitart/Acetaminophen 1 tab 01/20/18 09:21 [place] 5/325 PO Q4H PRN PAIN SCALE 3 TO 5 Al Hydrox/Mg Hydrox/Simethicone 30 ml 01/20/18 09:22 Mag-Al Plus Susp Liq PO Q6H PRN DYSPEPSIA OR HEARTBURN Al Hydroxide/Mg Hydroxide 30 ml 01/20/18 09:22 Milk Of Magnesia Liq PO Q12H PRN Mild Constipation Bisacodyl 10 mg 01/20/18 09:22 Dulcolax Supp RECTAL DAILY PRN SEVERE CONSITIPATION Calcium Carbonate 500 mg 01/20/18 09:22 Tums Chew CHEW Q6H PRN DYSPEPSIA OR HEARTBURN Famotidine 20 mg 01/20/18 09:30 01/22/18 09:19 Pepcid PO 20 mg BID СВЕТЛАНА Administration Heparin Sodium (Porcine) 5,000 units 01/22/18 21:00 Heparin Inj SQ Q12HR [facility] Hydromorphone HCl 1 mg 01/19/18 16:15 01/22/18 10:25 Dilaudid Pf Inj IV.PUSH 1 mg Q4H PRN Administration INTRACTABLE PAIN Sodium Chloride 1,000 mls @ 84 mls/hr 01/21/18 14:15 01/22/18 13:23 Ns Inj IV.CONT 84 mls/hr .[id number] СВЕТЛАНА Administration Ketorolac Tromethamine 15 mg 01/19/18 19:17 01/22/18 11:54 Toradol Inj IV.PUSH 01/24/18 19:16 15 mg Q6H PRN Administration BREAKTHROUGH PAIN Lactulose 30 ml 01/20/18 09:22 01/22/18 09:20 Lactulose Liq PO 30 ml DAILY PRN Administration SEVERE CONSITIPATION Lidocaine HCl 1 patch 01/21/18 09:45 01/22/18 09:20 Lidoderm 5% Patch.12 Hr T-DERMAL 1 patch DAILY СВЕТЛАНА Administration Naloxone HCl 0.4 mg 01/20/18 09:21 Narcan Inj IV.PUSH UNSCH PRN SEE LABEL COMMENTS Ondansetron HCl 4 mg 01/19/18 11:40 01/22/18 11:54 Zofran Inj IV.PUSH 4 mg Q8H PRN Administration nausea Patch Removal 1 each 01/21/18 21:00 01/21/18 20:52 Remove Old Patch T-DERMAL Not Given HS СВЕТЛАНА Polyethylene Glycol 17 gm 01/22/18 10:45 01/22/18 11:57 Miralax PO 17 gm DAILY СВЕТЛАНА Administration Senna/Docusate Sodium 1 tab 01/20/18 21:00 01/22/18 09:19 Vibha-Colace PO 1 tab BID СВЕТЛАНА Administration Sennosides 17.2 mg 01/20/18 09:22 01/22/18 09:19 Senokot PO 17.2 mg Q12H PRN Administration Moderate Constipation Sodium Chloride 2 ml 01/21/18 09:00 01/22/18 09:24 Ns Flush IV.FLUSH Not Given BID СВЕТЛАНА Sodium Chloride 2 ml 01/21/18 02:10 01/21/18 06:41 Ns Flush IV.FLUSH 2 ml PRN PRN Administration FLUSH AFTER USING IV ACCESS Assessment and Plan - Assessment (1) Hydronephrosis Code(s): N13.30 - Unspecified hydronephrosis Status: Acute - Plan -No urological intervention indicated at this time -Discussed findings with patient in detail -Please call with questions
--- NOTE | 2018-01-22 18:37 | MR ---
EXAM DATE: 01/22/2018 6:31 PM EST AGE/SEX: 32 years / Male INDICATIONS: Pain. No injury. CLINICAL DATA: This is the patient's subsequent encounter. Patient reports that signs and symptoms h ave been present for 3 days and indicates a pain score of 4/10. MEDICAL/SURGICAL HISTORY: Pancreatitis. Renal calculi. Hydronephrosis. Lithotripsy. COMPARISON: No prior exams available for comparison. TECHNIQUE: Multiplanar, multisequence MRI of the thoracic spine was performed. FINDINGS: No discrete disc protrusions. Normal alignment of the thoracic spine. No canal stenosis or direct ner ve root compression. No cord signal abnormality. CONCLUSION: 1. Unremarkable MRI of the thoracic spine. Electronically signed by: Jer Garza MD 01/22/2018 6:36 PM EST
--- NOTE | 2018-01-22 18:56 | MR ---
EXAM DATE: 01/22/2018 6:46 PM EST AGE/SEX: 32 years / Male INDICATIONS: Pain. No injury. CLINICAL DATA: This is the patient's subsequent encounter. Patient reports that signs and symptoms h ave been present for 3 days and indicates a pain score of 4/10. MEDICAL/SURGICAL HISTORY: Pancreatitis. Renal calculi. Hydronephrosis. Lithotripsy. COMPARISON: No prior exams available for comparison. TECHNIQUE: Multiplanar, multisequence MRI of the lumbar spine was performed without contrast. Patie nt was scanned in a sitting position; neutral, flexion, and extension scans were performed in the sa gittal plane. FINDINGS: There is no discrete disc protrusion. No canal or foraminal stenosis. No direct nerve root compressio n. Normal alignment of the lumbar spine. CONCLUSION: 1. Unremarkable MRI of the lumbar spine. Electronically signed by: Jer Garza MD 01/22/2018 6:55 PM EST
[2018-01-22] MEDS: Heparin - SQ 10,000 UNITS/ML Vial SQ SCH (20:22)
[2018-01-23] MEDS: Sod Chloride 0.9% Inj 1,000 ML IV.CONT SCH ×3 (02:23→14:48)
[2018-01-23] MEDS: HYDROmorphone PF Inj 1 MG/ML Ampul IV.PUSH PRN ×3 (04:47→14:47)
[2018-01-23] MEDS: Heparin - SQ 10,000 UNITS/ML Vial SQ SCH (08:51)
[2018-01-23] MEDS: Senna/Docusate Sodium 8.6/50 MG Tablet PO SCH (08:52)
[2018-01-23] MEDS: Polyethylene Glycol 3350 17 GM Packet PO SCH (08:52)
[2018-01-23] MEDS: Famotidine 20 MG Tablet PO SCH (08:52)
[2018-01-23] MEDS: Sodium Chloride 0.9% 2 ML Flush BID IV.FLUSH SCH (08:56)
[2018-01-23] MEDS: Lidocaine 5% Patch T-DERMAL SCH (09:06)
--- NOTE | 2018-01-23 15:14 | P.PNIM ---
Subjective Interval history: Follow up left sided flank pain, nausea, vomiting Patient continues to report left sided flank pain that he rates as a 7-8/10. Discussed Urology recommendations and findings with the patient. Lab work reviewed and grossly unremarkable. Patients and children are in the room. Children are running around and playing. Patient does not appear to be in acute distress. Denies nausea or vomiting. He is eating and tolerating his diet. Reports bowel movement yesterday. Discontinued IV Dilaudid and will continue [place] and Toradol for now. Vital signs stable and patient has remained afebrile. MRI results reviewed with patient and unremarkable. Physical Exam Vital signs: Last Vital Signs Temp 98.4 F 01/23/18 12:00 Pulse 61 01/23/18 12:00 Resp 16 01/23/18 12:00 BP 126/68 01/23/18 12:00 Pulse Ox 98 01/23/18 12:00 Intake & Output 01/21/18 01/22/18 01/23/18 01/24/18 06:59 06:59 06:59 06:59 Intake Total 1000 / 1000 2200 / 2200 3960 / 3960 1000 / 1000 Output Total 2300 / 2300 Balance -1300 / -1300 2200 / 2200 3960 / 3960 1000 / 1000 Weight 95 kg 95 kg Narrative: GENERAL: Well-developed and well-nourished male patient, INAD. Awake and alert. Appears uncomfortable lying in bed. His is at the bedside. SKIN: Warm and dry. No generalized rash. CARDIOVASCULAR: Regular rate and rhythm. RESPIRATORY: No accessory muscle use. Clear to auscultation. Breath sounds equal bilaterally. GASTROINTESTINAL: Abdomen soft, nondistended. +tenderness to palpation left lower quadrant. +Left CVA tenderness. +well healed left sided surgical scar from previous ureteral sx per patient. MUSCULOSKELETAL: Extremities without clubbing, cyanosis, or edema. No obvious deformities. NEUROLOGICAL: Awake and alert. No obvious cranial nerve deficits. Motor grossly within normal limits. Able to move all extremities spontaneously. Nonfocal. Normal speech. PSYCHIATRIC: Appropriate mood and affect; insight and judgment normal. Results Labs CBC & Chem 7: 01/22/18 12:59 01/22/18 12:59 Imaging Imaging: Impressions Lumbar Spine MRI 01/22/18 00:00 CONCLUSION: 1. Unremarkable MRI of the lumbar spine. Thoracic Spine MRI 01/22/18 00:00 CONCLUSION: 1. Unremarkable MRI of the thoracic spine. Assessment and Plan Plan 32yo male with PMHX of kidney stones admitted with left sided hydronephrosis: Severe left-sided hydronephrosis - reviewed 01/23/18, improved -hx of left-sided ureteral surgery -CT abd/pelvis shows abnormal dilation of the left renal collecting system, no e /o stone, concern for area of stenosis from prior ureteral sx with resulting hydronephrosis. -UA unremarkable -creatinine WNL -s/p Lasix renal scan showing symmetric function, no e/o obstruction, prominent left sided extrarenal pelvis - following, appreciate assistance. No urologic intervention indicated at this time. Patient may follow-up as outpatient. -continue with supportive care with pain control and antiemetics as needed, d/c' d IV Dilaudid -?musculoskeletal pain, patient denies any hx of recent injury or back problems , trial of kthermia and lidoderm patch. -MRI thoracic and lumbar spine unremarkable Constipation, may be contributing to current symptoms - reviewed 01/23/18, improved -pt reports BM yesterday -CT reviewed showed significant amount of stool in colon -continue bowel regimen Elevated lipase - reviewed 01/23/18, improved -no evidence of pancreatitis on CT -repeat lipase WNL -continue supportive care Leukocytosis, suspect reactive - reviewed 01/23/18, resolved -monitor white count as indicated MDM: self Code: Full GI ppx: PPI DVT prophylaxis, pt is ambulatory Progress Note: Quality VTE Deep Vein Thrombosis/Pulmonary Embolism Present on Admission: No
[2018-01-23 22:29] VITALS: BP 127/88; PULSE 83; RESP 18; TEMP 98.6; O2SAT 99
--- NOTE | 2018-01-23 22:31 | P.DS ---
DS: Providers Date of admission: 01/19/18 13:49 Primary care physician: No Primary Care Physician Consults: 01/19/18 11:34 Consult to Urology Stat Consulting Provider: Aleksander Rush For STAT consult, spoke directly to:: agusto Reason for Consultation: severe left hydronephrosis without stone Notified:: Service Spoke with:: ANNABELLE Date Notified:: 01/19/18 Time Notified:: 11:42 Ordering Provider: SHABNAM Brief History from admission: patient is a 32 y/o male with history of kidney stone- s/p left kidney surgery/ laser stone fragmentation/ left ureteral stent placement years ago, presented to ER with left flank pain.he says that the pain started this morning. pain was sharp and severe. pain had some radiation to the left upper abdomen. it was not associated with nausea, vomiting. he denies fever, gross hematuria or dysuria. pain subsided slightly with the morphine that he received earlier. DS: Diagnosis Discharge Diagnosis (1) Hydronephrosis: Status: Acute (2) Constipation: Status: Acute (3) Elevated lipase: Status: Acute (4) Leukocytosis: Status: Acute DS: Summary Patient was admitted under the care of the hospitalist service. Urology was consulted for evaluation for finding of left sided hydronephrosis. Patient was seen by Dr Rush who noted the CT abdomen/pelvis findings. No evidence of obvious obstruction was noted. A lasix renal scan was completed to evaluate for obstruction. This was completed 01/20/18 and showed symmetric function. No evidence of obstruction on either side was noted. No additional intervention was needed and patient was advised to continue outpatient follow up with Urology. Patient continued to complain of left sided flank and back pain that he rated as severe. A MRI of the lumbar and thoracic spine were completed and resulted as unremarkable. Patient continued to report moderate to severe pain. In anticipation of discharge the IV Dilaudid was stopped and patient was continued on oral pain medications. RN stated that patients complained that there was no need for patient to remain in the hospital if he wasn't going to be receiving IV pain medications and that they had Hydrocodone at home that he can take. Patient's lab work was unremarkable and he was hemodynamically stable. Discharge orders were placed. Patient was advised to follow up with PCP in 3 days. ED precautions provided for worsening signs and/or symptoms. Status at Discharge Functional status at discharge: independent ambulation Overall status at discharge: patient is progressing back to baseline Time Spent with Patient Total time spent providing and/or coordinating discharge services: Greater than 30 minutes Quality: VTE Deep Vein Thrombosis/Pulmonary Embolism Present on Admission: No Exam Narrative Exam Narrative: GENERAL: no acute distress, well developed, well nourished SKIN: Warm and dry. HEAD: Atraumatic. Normocephalic. EYES: Pupils equal and round. No scleral icterus. No injection or drainage. ENT: No nasal bleeding or discharge. Mucous membranes pink and moist. NECK: Trachea midline. No JVD. CARDIOVASCULAR: Regular rate and rhythm. RESPIRATORY: No accessory muscle use. Clear to auscultation. Breath sounds equal bilaterally. GASTROINTESTINAL: Abdomen soft, non-tender, nondistended. MUSCULOSKELETAL: Extremities without clubbing, cyanosis, or edema. No obvious deformities. NEUROLOGICAL: Awake and alert. No obvious cranial nerve deficits. Motor grossly within normal limits. Five out of 5 muscle strength in the arms and legs. Normal speech. PSYCHIATRIC: Appropriate mood and affect; insight and judgment normal. Results Impressions ITS Impressions Abdomen/Pelvis CT 01/19/18 09:29 CONCLUSION: 1. There is abnormal dilation of the left renal collecting system to the level of the pelvic inlet without visible obstructing stone. Findings are concerning for an area of stenosis from prior ureteral surgery with resulting severe hydronephrosis. Urologic consultation is recommended. 2. No evidence of renal stones. Renal Scan w/Medication NM 01/20/18 00:00 CONCLUSION: 1. Symmetric function. No evidence of obstruction on either side. 2. Prominent left-sided extrarenal pelvis with good response to Lasix. Lumbar Spine MRI 01/22/18 00:00 CONCLUSION: 1. Unremarkable MRI of the lumbar spine. Thoracic Spine MRI 01/22/18 00:00 CONCLUSION: 1. Unremarkable MRI of the thoracic spine. Discharge Plan Discharge Disposition Patient Disposition: 01 Discharge Home Discharge Condition Condition: Stable Discharge Order Discharge Orders: Discharge Order (Routine); Ordered 01/23/18 Ordered By: Ofe Marte Discharge Details Anticipated Discharge Date: 01/23/18 Physicians Team Primary Care Provider: Primary Care Kj,Swapna Attending Provider: Nrimal Owen Other Providers: Aleksander Rush Rxs /Orders / Referrals /Forms Prescriptions: No Action No Known Home Medications RF: 0 Referrals: Primary Care Physici,No [Primary Care Provider] - See Instructions (Follow up with PCP within 1 week. Follow up with Urology in 1-2 weeks. ) Discharge Instructions Patient Printed Instructions: Dehydration (DC), Flank Pain (ED), Hydronephrosis (DC) Additional Instructions: Keep or make your follow up appointment as recommended by your providers. Take medications as directed. Post Discharge Care Plan Care Plan Goals: Your Health Problems: Goals to Promote Your Health: * To prevent worsening of your condition * To maintain your health at the optimal level Directions to Meet Your Goals: * Take your medications as prescribed * Follow your dietary instruction * Follow activity as directed * Keep your appointments as scheduled * Take your immunizations and boosters as scheduled * If your symptoms worsen call your PCP * If no PCP go to Urgent Care or Emergency Room Smoking is dangerous to your health. Avoid second hand smoke. You may reach the 24-hour crisis hotline for domestic abuse at . Status ED Status: Left Department Discharge Information Discharge Date/Time: 01/23/18 15:00
== END 2018-01-23 15:00 | disposition home or self-care (01) ==
LOC: NEDA 08:33 → NEPD 08:33 → NEDA 13:35 → NEPFCDU 13:39 → N06 01-21 06:21
PROVIDERS: ADMIT Hospitalist; ATTEND Hospitalist
DX: F12.90 Cannabis use, unspecified, uncomplicated; R74.8 Abnormal levels of other serum enzymes; F17.210 Nicotine dependence, cigarettes, uncomplicated; Z88.2 Allergy status to sulfonamides; K59.00 Constipation, unspecified; N13.30 Unspecified hydronephrosis; Z87.442 Personal history of urinary calculi; D72.829 Elevated white blood cell count, unspecified